=== PATIENT | female | born 1965 | race Caucasian/White ===

== ENCOUNTER 2022-07-10 09:24 | Emergency (ER) | payer MEDICAID ==
[~2022-07-10] VITALS: Ht 154.9 cm; Wt 68.0 kg
[2022-07-10 09:28] VITALS: BP_SYST 157
--- NOTE | 2022-07-10 09:48 | NUR ---
ER at bedside examining patient.
--- NOTE | 2022-07-10 09:50 | NUR ---
Assumed care of pt and pt c/o having chest pain 03/05 that started on Sunday intermittent and describes pain as sharp. Nothing makes it worse or better she states. Pain started abruptly no trauma. Connected to cardiac monitoer. VSS. EKG was done by triage nurse Delano and results given to Dr. Holder. Pt A&Ox4. Skin intact. Respirations even and unlabored. No n/v. Ambulatory with steady gait. Cranial nerves intact. NKA. No known medical conditions. Bed in lowest position. Safety checks in place. Pt placed in gown.
--- NOTE | 2022-07-10 09:54 | NUR ---
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
--- NOTE | 2022-07-10 09:58 | NUR ---
X-Ray being done at bedside.
[2022-07-10 10:12] LABS: BASOPHILS % (AUTO) 0.7 % (0.0-2.0); EOSINOPHILS # (AUTO) 0.1 K/uL (0.0-0.4); EOSINOPHILS % (AUTO) 1.7 % (0.0-4.0); HEMATOCRIT 42.4 % (36-48); HEMOGLOBIN 14.6 g/dL (12.0-16.0); LYMPHOCYTES # (AUTO) 1.5 K/uL (1.0-5.5); LYMPHOCYTES % (AUTO) 23.9 % (20.5-51.5); MEAN CORPUSCULAR HEMOGLOBIN 30 pg (27-31); MEAN CORPUSCULAR HGB CONC 34 % (32-36); MEAN CORPUSCULAR VOLUME 88 fL (79.0-98.0); MONOCYTES # (AUTO) 0.4 K/uL (0.0-1.0); MONOCYTES % (AUTO) 6.2 % (1.7-9.3); NEUTROPHILS # (AUTO) 4.2 K/uL (1.8-7.7); NEUTROPHILS % (AUTO) 67.5 % (40.0-70.0); PLATELET COUNT (AUTO) 228 K/uL (130-430); RED BLOOD CELL COUNT(AUTO) 4.82 MIL/uL (4.2-6.2); RED CELL DISTRIBUTION WIDTH 12.7 % (9.0-15.0); WHITE BLOOD COUNT (AUTO) 6.3 K/uL (4.8-10.8)
[2022-07-10 10:14] LABS: ANION GAP 8 (5-15); CALCIUM 8.9 mg/dL (8.4-11.0); CHLORIDE 104 mmol/L (98-107); CREATININE 0.95 mg/dL (0.55-1.30); GLUCOSE 114 mg/dL (70-99); POTASSIUM 3.8 mmol/L (3.5-5.1); SODIUM SERUM 140 mmol/L (136-145); UREA NITROGEN, BLOOD 20 mg/dL (8-21)
[2022-07-10 10:18] LABS: INR 0.9 (0.8-1.2); PROTHROMBIN TIME 9.7 SECS (9.5-12.5)
[2022-07-10 10:23] LABS: ALANINE AMINOTRANSFERASE 43 U/L (12-78); ALBUMIN 3.9 g/dL (3.4-4.8); ASPARTATE AMINOTRANSFERASE 25 U/L (10-37); PHOSPHORUS 3.9 mg/dL (2.7-4.5); TOTAL BILIRUBIN 0.4 mg/dL (0.0-1.0)
[2022-07-10 10:28] LABS: GFR AFRICAN AMERICAN 78 mL/min (>90)
--- NOTE | 2022-07-10 10:33 | NUR ---
ELIAZAR Avila at bedside.
--- NOTE | 2022-07-10 10:41 | NUR ---
Tamia bhatti in [facility] - 07/10/22 at 1042 by [id number] ETA for taxi is at 1130. Pt aware and has no c/o.
[2022-07-10] MEDS ORDERED: LIDOCAINE PATCH 5% 1 EA TP SCH (10:45)
[2022-07-10] MEDS ORDERED: KETOROLAC TROMETHAMINE 30 MG VIAL IVP ONE (10:45)
[2022-07-10] MEDS ORDERED: KETOROLAC TROMETHAMINE 30 MG VIAL IM ONE (11:00)
--- NOTE | 2022-07-10 12:10 | NUR ---
Pt resting in bed with no s/s of distress. Pt has no c/o. A&Ox4. VSS.
[2022-07-10] MEDS ORDERED: NAPR-688 PO (12:48)
[2022-07-10 12:55] VITALS: BP_SYST 105
--- NOTE | 2022-07-10 12:56 | NUR ---
Patient given written and verbal discharge instructions and verbalizes understanding. ER MD discussed with patient the results and treatment provided. Patient in stable condition. ID arm band removed. Rx of Naproxen given. Patient educated on pain management and to follow up with PMD. Pain Scale 0/10. Opportunity for questions provided and answered. Medication side effect fact sheet provided.
== END 2022-07-10 12:55 | disposition home or self-care (01) ==
LOC: SED 09:24
DX: M94.0 Chondrocostal junction syndrome [Tietze] (principal); I10 Essential (primary) hypertension; R07.9 Chest pain, unspecified; Z79.899 Other long term (current) drug therapy
CPT/HCPCS: 99285; 96374; 71045; 96375; 80053; 82550; 83880; 83735; 84100; 85025; 85610; 85730; 84484; 36415; 93005; J1885